=== PATIENT | female | born 1950 | race Hispanic/Latino ===

== ENCOUNTER 2022-08-24 16:45 | Emergency (ER) | payer MEDICARE, OTHER ==
[~2022-08-24] VITALS: Ht 172.7 cm; Wt 72.6 kg
[~2022-08-24 16:45] MED LIST: AEC81 PO; AMLO-258 PO; ATOR10 PO; CARB-38 PO; DOCU100T PO; DULO30CA52 PO; MULT-1367 PO; OMEP-420 PO
[2022-08-24 20:56] LABS: EOSINOPHILS % (AUTO) 4.5 % (0.0-8.0); HEMATOCRIT 31.4 % (36-48); LYMPHOCYTES % (AUTO) 30.1 % (21.0-51.0); MEAN CORPUSCULAR HEMOGLOBIN 31.8 pg (27.0-33.0); MEAN CORPUSCULAR HGB CONC 36.3 g/dL (32.0-36.0); MEAN CORPUSCULAR VOLUME 87.7 fL (79-99); MONOCYTES % (AUTO) 9.4 % (3.0-13.0); NEUTROPHILS % (AUTO) 54.7 % (40.0-77.0); PLATELET COUNT (AUTO) 242 K/uL (130-400); RED BLOOD CELL COUNT(AUTO) 3.58 MIL/uL (4.00-5.50); WHITE BLOOD COUNT (AUTO) 6.3 K/uL (4.8-10.8)
[2022-08-24 21:05] LABS: CREATININE 0.8 mg/dL (0.5-1.5); POTASSIUM 3.6 mmol/L (3.5-5.1)
[2022-08-24 21:09] LABS: ALBUMIN 3.6 g/dL (3.5-5.0); TOTAL PROTEIN, SERUM 7.4 g/dL (6.0-8.3)
[2022-08-24 22:33] LABS: APPEARANCE,URINE CLEAR (CLEAR); BILIRUBIN,URINE NEGATIVE (NEGATIVE); COLOR,URINE COLORLESS (YELLOW); GLUCOSE, URINE (UA) NEGATIVE (NEGATIVE); KETONES,URINE NEGATIVE (NEGATIVE); LEUKOCYTE ESTERASE ,URINE NEGATIVE Leu/uL (NEGATIVE); NITRATE,URINE NEGATIVE (NEGATIVE); OCCULT BLOOD,URINE NEGATIVE (NEGATIVE); PH,URINE 6.5 (5.0-8.0); PROTEIN,URINE NEGATIVE (NEGATIVE); UROBILINOGEN,URINE 0.2 mg/dL (0.2-1.0)
[2022-08-25] MEDS ORDERED: 0.9%NACL 1000ML 1,000 ML IV ONE (01:00)
[2022-08-25 06:37] VITALS: BP 136/64
== END 2022-08-25 07:55 | disposition home or self-care (01) ==
LOC: EDH 16:45
DX: G20 Parkinson's disease (principal); E86.0 Dehydration; I10 Essential (primary) hypertension; F02.80 Dementia in other diseases classified elsewhere, unspecified severity, without behavioral disturbance, psychotic disturbance, mood disturbance, and anxiety; Z79.899 Other long term (current) drug therapy; Z20.822 Contact with and (suspected) exposure to COVID-19; Z79.82 Long term (current) use of aspirin
CPT/HCPCS: 99285; 87635; 84484 ×2; 80053; 85025; 87804 ×2; 83605; 81003; 36415; 93005; 71045; C9803; J7030